=== PATIENT | female | born 1990 | race Caucasian/White ===

== ENCOUNTER 2019-06-03 19:16 | Emergency (ER) | payer OTHER ==
[~2019-06-03] VITALS: Ht 175.3 cm; Wt 96.6 kg
[2019-06-03] MEDS ORDERED: VENL150C PO (20:08)
--- NOTE | 2019-06-03 20:18 | NUR ---
THIS IS A 29 YO FEMALE COMING IN FOR SORE THROAT SINCE SUNDAY, WITH COUGH STARTING TODAY. PATIENT STATES HER BOYFRIENDS SONS CAME HOME WITH STREP THROAT LAST WEEK, HER BOYFRIEND GOT IT OVER THE WEEKEND. DENIES N/V/D, NO ABD PAIN, DENIES FLU LIKE SYMPTOMS. RESPIRATIONS EVEN AND UNLABORED, NO SOB, A&O X4, RESTING COMFORTABLY ON GURNEY. CALL LIGHT IN REACH, DENIES NEEDS AT THIS TIME.
--- NOTE | 2019-06-03 20:59 | NUR ---
PATIENT RESTING ON GURNEY, NO ACUTE DISTRESS, CALL LIGHT INREACH, DENIES NEEDS AT THIS TIME.
[2019-06-03 21:05] VITALS: BP 120/75
--- NOTE | 2019-06-03 21:29 | NUR ---
DC EDUCATION PROVIDED, PT DEMONSTRATES UNDERSTANDING. PT AMBULATED STEADILY TO DC WITH RN.
== END 2019-06-03 21:31 | disposition home or self-care (01) ==
LOC: ED 20:49
DX: J02.8 Acute pharyngitis due to other specified organisms (principal); B97.89 Other viral agents as the cause of diseases classified elsewhere; Z90.89 Acquired absence of other organs
CPT/HCPCS: 87081; 87880; 99283